=== PATIENT | female | born 1975 | race Hispanic/Latino ===

== ENCOUNTER 2019-03-22 10:34 | Outpatient (CLI) | payer OTHER ==
--- NOTE | 2019-03-22 11:07 | CT ---
CT OF FACIAL BONES: DATE: 03/22/2019. COMPARISON: None. HISTORY: Impacted wisdom teeth. TECHNIQUE: Axial CT imaging obtained at 2 mm intervals through the facial bones without contrast. Coronal and sa gittal reformatted imaging obtained. FINDINGS: The visualized brain parenchyma appears grossly unremarkable. There is a large osseous lesion on the right with cortical thickening, expansion, and internal hetero geneity with areas of lucency and calcification. Internal contents include fibrous matrix. 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 This results in mass effect on the superior aspect of the right orbit posteriorly, including the region of the orbital apex with associated mild right-sided exophthalmos. The left frontal sinus is well aerated. Bilateral ethmoid air cells and maxillary sinuses are well ae rated. No acute fracture or evidence of dislocation is seen. There is an unerupted posterior left mandibular tooth and an unerupted posterior right mandibular too th. The above-described right-sided extensive osseous lesion also involves the pterygoid plate on the right. 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 Posterior most bilatera l mandibular teeth are unerupted. Transcribed Date/Time: 03/22/2019 1:07 PM
== END 2019-03-22 10:35 | disposition home or self-care (01) ==
LOC: BICCT 10:34
PROVIDERS: ATTEND Dentist Oral and Maxillofacial Surgery
DX: K01.1 Impacted teeth (principal); K08.9 Disorder of teeth and supporting structures, unspecified
CPT/HCPCS: 70486